=== PATIENT | female | born 1935 | race Caucasian/White ===

== ENCOUNTER 2024-02-20 17:10 | Inpatient (IN) | payer MEDICARE, BC, SELFPAY ==
[2024-02-20] VITALS (8 sets, daily range): BP systolic 140–174; BP diastolic 65–95; BMI 31.5; BMI 32.8
[2024-02-20 13:03] LABS: % Basophils 0.3 % (0-2); % Eosinophils 2.2 % (0-6); % Immature Granulocytes 0.7 % (0-0.5); % Lymphocytes 29.8 % (20.5-51.1); % Monocytes 9.4 % (1.7-9.3); % Neutrophils 57.6 % (42.2-75.2); Absolute Eosinophils 0.1 10^3/uL (0-0.7); Absolute Lymphocytes 1.8 10^3/uL (1.2-3.4); Absolute Monocytes 0.6 10^3/uL (0.1-0.6); Absolute Neutrophils 3.4 10^3/uL (1.4-6.5); Hematocrit 24.8 % (37.0-47.0); Mean Corpuscular Hgb 15.5 pg (27.0-31.0); Mean Corpuscular Volume 62.2 fL (81.0-99.0); Nucleated Red Blood Cells % 0 %; Red Blood Cell Count 3.99 10^6/uL (4.20-5.40); Red Cell Dist. Width 21.1 % (11.5-14.5); White Blood Cell Count 5.9 10^3/uL (4.8-10.8)
[2024-02-20 13:04] LABS: Hemoglobin 6.2 g/dL (12.0-16.0)
[2024-02-20 13:17] LABS: ALT (SGPT) 12 U/L (0-35); AST (SGOT) 20 U/L (14-36); Albumin 4.1 g/dl (3.5-5.0); Alkaline Phosphatase 58 U/L (38-126); Blood Urea Nitrogen 27 mg/dl (7-17); Calcium 8.9 mg/dl (8.4-10.2); Carbon Dioxide 24 mmol/L (22-30); Chloride 103 mmol/L (98-107); Estimated Creatinine Clearance 55 ml/min; Glucose 93 mg/dl (70-99); Potassium 4.7 mmol/L (3.5-5.1); Sodium 137 mmol/L (135-145); Total Bilirubin 0.3 mg/dl (0.2-1.3); Total Protein 6.6 g/dl (6.3-8.2); eGFR > 60.00
--- NOTE | 2024-02-20 15:40 | ED.GENMED ---
History of Present Illness
General
Chief Complaint: Abnormal Lab Value
Source: patient
Exam Limitations: none
Time Seen by Provider: 02/20/24 15:05
Nursing documentation reviewed up to this point in time: agreed with
History of Present Illness
History of Present Illness:
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
Cardiac stents remotely
Presents for gradual onset of fatigue over the last week or so. Patient says she cannot be sure how long she has had the symptoms but she has felt wiped out. With any movement or little bit of activity she feels short of breath. Her hemoglobin
was checked by the facility and it was 6.1 yesterday. She was told to come to the hospital. Patient has occasionally had upper abdominal discomfort but has never had an ulcer or an endoscopy.
Patient has never had a transfusion before. She has had some darker stool, she has been dealing with constipation and she thinks that she was given something that made her stool darker. She has not had any vomiting blood or bleeding from anywhere
else. Patient has no chest pain or syncope
Past History
Past History
ED Past Medical History: GERD, HTN, Hypercholesterolemia, Psychiatric (Anxiety/depression) and Other (Patient with history of DVT, PE 07/2020, no longer anticoagulated.)
ED Past Surgical History: Cholecystectomy
Social History
Tobacco: Non-smoker
Alcohol: None
Personal: Single
Living: fdc
Review of Systems
Review of Systems
Allergies reviewed?: Yes
All Other Systems: Not applicable
Phy Exam
Physical Exam
Physical Exam:
GENERAL: Alert , in no apparent distress, fatigued
EYE: pupils equal and reactive, pale
NECK: Supple
ENT: o/p clr, mmm.
CARDIAC: Regular rate and rhythm ., No murmur
LUNGS: Faint wheezing possibly heard, clear breath sounds bilaterally, no acute respiratory distress, no wheezes/rales/rhonchi
ABDOMEN: Soft, without focal tenderness, no r/g, no cvat, normal bowel sounds
NEUROLOGICAL: Alert and oriented, no focal neuro deficits
SKIN: Warm and dry, skin intact. pale
MUSCULOSKELETAL: mild edema, well perfused. neg sergio's sign
PSYCH: Normal and appropriate interaction.
Course
Orders/Labs/Results
Orders:
Orders
02/20/24 12:42
Electrocardiogram (*1) Urgent
Reason for Study: Fatigue / Weakness
EKG- Treatment ONCE
02/20/24 12:46
Electrocardiogram (*1) Urgent
Reason for Study: Fatigue / Weakness
EKG- Treatment ONCE
02/20/24 12:49
Complete Blood Count/With Diff Urgent
Comprehensive Metabolic Panel Urgent
02/20/24 15:09
Type And Crossmatch [Type+Screen] Urgent
02/20/24 15:27
Blood Bank Products [* Blood Bank Products] Urgent
Blood Bank Products: *Packed RBC Leuko(PRBC's)
Quantity: 2
Transfuse Today: Yes
Reason: Anemia
NT-proBNP Urgent
Pantoprazole [Protonix IV] 40 mg IV NOW STA
CR Chest - 2 Views Urgent
Comment:
Reason For Exam: sob
Abnormal Lab Results
02/20/24
12:49
RBC 3.99 L 10^6/uL
(4.20-5.40)
Hgb 6.2 L* g/dL
(12.0-16.0)
Hct 24.8 L %
(37.0-47.0)
MCV 62.2 L fL
(81.0-99.0)
MCH 15.5 L pg
(27.0-31.0)
MCHC 25.0 L g/dL
(33.0-37.0)
RDW 21.1 H %
(11.5-14.5)
Immature Gran % 0.7 H %
(0-0.5)
Monocytes % 9.4 H %
(1.7-9.3)
BUN 27 H mg/dl
(7-17)
02/20/24 12:49
02/20/24 12:49
Vital Signs
Initial and Last Documented VS:
Initial Vital Signs
Temp Pulse Resp BP Pulse Ox
36.6 C 90 18 152/73 96
02/20/24 12:37 02/20/24 12:37 02/20/24 12:37 02/20/24 12:37 02/20/24 12:37
Last Documented Vital Signs
Temp Pulse Resp BP Pulse Ox
37.2 C 91 18 165/71 92
02/20/24 13:39 02/20/24 14:29 02/20/24 14:29 02/20/24 14:29 02/20/24 14:29
MDM/Problems Addressed
Differential Diagnosis Includes:
symptomatic anemia GI bleed
MDM/Problems Addressed:
88 y/o F with no AC
here with symptjmatoic anemia
knwon hg of 6.1
HEME POS light brown stool todya
very pale
weak and fatigued
faint wheeze on exam
normal bp
will transufse, consent on the chart
protonix iv
admit
*Critical Care Note
Total Time (30-74mins, 75-104mins- exclusive of procedures): Not Applicable
ED Attending Note
-
Portions of this chart may have been created with voice recognition software.� Occasional wrong word or��sound alike� substitutions may have occurred due to the inherent limitations of voice recognition software.
Discharge Plan
Departure
Patient Disposition: Admit
Date of Disposition: 02/20/24
Time of Disposition: 15:37
Admit to: Telemetry
Presentation/result/management discussed w/ accepting MD/DO: Hospitalist
Condition: Fair
Covid-19: Not Applicable
Discharge Problem:
Symptomatic anemia, GI bleed
Prescriptions:
No Action
sennosides [senna] 8.6 mg Tablet
8.6 mg PO HS
acetaminophen 650 mg Suppository
650 mg IA Q6HPRN PRN (Reason: mild pain/fever)
polyethylene glycol 3350 [Miralax] 17 gram Powder In Packet
17 g PO DAILYPRN PRN (Reason: constipation)
prochlorperazine maleate 10 mg Tablet
10 mg PO Q6HPRN PRN (Reason: nasuea)
lorazepam 0.5 mg Tablet
0.5 mg PO Q8HPRN PRN (Reason: anxiety)
phenazopyridine [Pyridium] 100 mg Tablet
100 mg PO Q8HPRN PRN (Reason: burning with urination)
bisacodyl [Dulcolax (bisacodyl)] 10 mg Suppository
10 mg IA [id number] PRN (Reason: if no bm by 3rd day)
fluoxetine 20 mg Tablet
30 mg PO DAILY
bismuth subsalicylate [Pepto-Bismol] 262 mg/15 mL Suspension
524 mg PO Q6HPRN PRN (Reason: gi upset)
hyoscyamine sulfate [Levsin/SL] 0.125 mg Tablet, Sublingual
0.125 mg PO Q4HPRN PRN (Reason: secretions)
fentanyl 75 mcg/hr Patch 72 Hour
1 patch TRANSDERMAL Q72H
duloxetine [Cymbalta] 20 mg Capsule,Delayed Release(Dr/Ec)
40 mg PO QPM
morphine concentrate 20 mg/mL Syringe
15 mg PO Q1HPRN PRN (Reason: severe pain)
acetaminophen 325 mg Tablet
650 mg PO Q6HPRN PRN (Reason: mild pain/fever)
gabapentin 400 mg Capsule
400 mg PO TID
lidocaine 4 % Cream
1 applic TOPICAL TIDPRN PRN (Reason: feet and legs)
methenamine hippurate [Hiprex] 1 gram Tablet
1 g PO BID
lorazepam 0.5 mg Tablet
0.5 mg PO Q8H
Deep Sea Nasal 0.65 % Aerosol,Filley
1 spray INTRANASAL [id number] PRN (Reason: nasal congestion)
Eucerin Daily Replenishing Lotion
1 applic TOPICAL BID
morphine concentrate 20 mg/mL Syringe
15 mg SUBLINGUAL DAILY
Cough Drops 5.4 mg Lozenge
5.4 mg MUCOUS MEMBRANE Q2HPRN PRN (Reason: cough)
Interventions
Interventions:
*Risk Screen - Suicide Last Done: 02/20/24 12:37
*Neglect/Abuse Screening Last Done: 02/20/24 12:37
*ED COVID-19 Vaccine History Last Done: 02/20/24 12:37
Discharge Date and Time
Print Language: AUSTRALIAN
--- NOTE | 2024-02-20 15:57 | HPS.HSE ---
Family Physician
-
Family Physician: Deon Hernandez
Chief Complaint
-
Fatigue, reported dark brown stool, hemoglobin 6.1
History of Present Illness
88-year-old female from [facility] complaining of fatigue over the past week, mid abdominal pain, constipation approximately 4-5 days ago and indigestion. Her daughter Dory states her mother has chronic issues with severe constipation then
diarrhea with indigestion. She states her mother had constipation greater than 4 to 5 days ago she was given prune juice and MiraLAX on 1227 and 122. The patient states she had a bowel movement yesterday 02/19/2024 that was dark brown in color.
Her daughter states after she has a bowel movement she then starts having diarrhea with indigestion so they gave her Pepto-Bismol of which she has had in the last few days. Her hemoglobin is 6.1 from [facility] labs today her daughter states
January 2023 her hemoglobin is around 10. The patient denies headache, sore throat, fever, chills, chest pain, palpitations, cough, shortness of breath, current urinary symptoms. She has past medical history of DVT right leg/PE 2020 was on
Eliquis but not currently, HTN, HLD, arterial sclerosis, GERD daily reported, chronic constipation/diarrhea, iron deficiency anemia, DM2 diet-controlled, anxiety/depression, chronic wheelchair-bound, chronic left and right foot drop, neuropathy
bilateral feet, chronic lower back pain secondary to spinal stenosis opiate dependent, history of cognitive impairment not listed but son states has
Medical History
Past Medical History
Past Medical History: Reports Other
Additional Past Medical History:
DVT right leg/PE 2019 was on Eliquis but not now
HTN
HLD
Arterialsclerosis
GERD daily reported
Chronic constipation/diarrhea
Anemia
DM 2
Anxiety/depression
Spinal stenosis
Neuropathy bilateral feet
Chronic left and right foot drops
Chronic wheelchair-bound
Past Surgical History: Reports Other
Additional Past Surgical History:
Cholecystectomy
Social History
Tobacco: Non-smoker
Alcohol: Occasional
Drug: None
Personal: Single
Living: Assisted Living ([facility])
Employment: Retired
Family History
Family History: Not pertinent
Allergies / Home Medications
Allergies reflects when Allergies were last updated in [employer].
Home Medications with original date entered in [facility]
Allergy/Medication List:
Allergies
Allergy/AdvReac Type Severity Reaction Status Date / Time
No Known Allergies Allergy Unverified 02/07/23 12:54
Home Medications
acetaminophen 650 mg rectal suppository 650 mg SC Q6HPRN PRN mild pain/fever 02/07/23
bisacodyl 10 mg rectal suppository (Dulcolax (bisacodyl)) 10 mg SC [id number] PRN if no bm by 3rd day 02/07/23
bismuth subsalicylate 262 mg/15 mL oral suspension (Pepto-Bismol) 524 mg PO Q6HPRN PRN gi upset 02/07/23
duloxetine 20 mg capsule,delayed release (Cymbalta) 40 mg PO QPM 02/07/23
fentanyl 75 mcg/hr transdermal patch 1 patch transdermal Q72H 02/07/23
fluoxetine 20 mg tablet 30 mg PO DAILY 02/07/23
hyoscyamine sulfate 0.125 mg sublingual tablet (Levsin/SL) 0.125 mg PO Q4HPRN PRN secretions 02/07/23
lorazepam 0.5 mg tablet 0.5 mg PO Q8HPRN PRN anxiety 02/07/23
morphine concentrate 20 mg/mL oral syringe (FOR ORAL USE ONLY) 15 mg PO Q1HPRN PRN severe pain 02/07/23
phenazopyridine 100 mg tablet (Pyridium) 100 mg PO Q8HPRN PRN burning with urination 02/07/23
polyethylene glycol 3350 17 gram oral powder packet (Miralax) 17 g PO DAILYPRN PRN constipation 02/07/23
prochlorperazine maleate 10 mg tablet 10 mg PO Q6HPRN PRN nasuea 02/07/23
sennosides 8.6 mg tablet (senna) 8.6 mg PO HS 02/07/23
acetaminophen 325 mg tablet 650 mg PO Q6HPRN PRN mild pain/fever 02/20/24
gabapentin 400 mg capsule 400 mg PO TID 02/20/24
lidocaine 4 % topical cream 1 applic topical TIDPRN PRN feet and legs 02/20/24
lorazepam 0.5 mg tablet 0.5 mg PO Q8H 02/20/24
menthol 5.4 mg lozenges (Cough Drops) 5.4 mg mucous membrane Q2HPRN PRN cough 02/20/24
methenamine hippurate 1 gram tablet 1 g PO BID 02/20/24
morphine concentrate 20 mg/mL oral syringe (FOR ORAL USE ONLY) 15 mg sublingual DAILY 02/20/24
sodium chloride 0.65 % nasal spray aerosol (Deep Sea Nasal) 1 spray intranasal [id number] PRN nasal congestion 02/20/24
vit B-ehijswkh-reryeycdcma lotion 1 applic topical BID feet 02/20/24
Review of Systems
-
History Source: Patient and Family (Son Dante in room and daughter Dory on the phone)
A 12 point ROS was completed and negative except as noted: Yes
Constitutional: Reports Fatigue; Denies Fever
EENT: Denies Sore Throat or Runny Nose
Respiratory: Denies Cough or Trouble Breathing
Abdomen/GI: Reports Abdominal Pain (Entire abdomen including indigestion) and Constipated (4 to 5 days ago last bowel movement yesterday 02/19/2024 dark brown after Pepto); Denies Nausea, Vomiting or Diarrhea
: Denies Dysuria, Frequency, Flank Pain, Incontinence, Difficulty Voiding or Urgency
Musculoskeletal: Reports Other (Chronic bilateral lower leg foot drops left and right); Denies Joint Pain or Edema
Skin: Denies Itching or Rash
Neurological: Denies Dizzy, Headache or Weakness
Endocrine: Reports No Symptoms
Hematologic/Lymphatic: Reports No Symptoms
Psych: Reports Calm
Physical Exam
Vital Signs
Vital Signs
Temp Pulse Resp BP Pulse Ox
98.9 F 91 18 165/71 92
02/20/24 13:39 02/20/24 14:29 02/20/24 14:29 02/20/24 14:29 02/20/24 14:29
Physical Exam
General: Comfortable, Conversant and Other (Reported fatigue and constipation unsure how long patient with history of cognitive impairment not listed but son states); No Fever or Chills
HEENT: NormoCephalic, Anicteric, Moist mucous membranes, PERRLA and [place] Conjunctivae
Respiratory: Clear; No Wheezes, Rales or Rhonchi
Cardiac: S1/S2 and Regular Rhythm; No Murmur, Rub, Gallop or Peripheral Edema
Breast: Deferred by me
GI: Soft, Non Distended, Normal Bowel Sounds and Tender (Epigastric area)
Rectal: Hem Positive (Light brown per ER record heme positive)
Genito-urinary: Deferred by me
Musculoskeletal: No Clubbing, No Cyanosis, No Edema and Other (Bilateral left and right foot drops chronic)
Skin: Warm and Dry; No Rash, Jaundice or Ulcers
Neuro: Awake, Alert, Oriented (To name, place, son but not history inconsistent with history, review of systems), Cranial Nerves Intact, No Sensory Deficits and Other (Chronic bilateral foot drop); No Slurred Speech, Facial Droop or Tremors
Psych: Calm
Laboratory Results
-
02/20/24 12:49
02/20/24 12:49
Laboratory Results
Total Bilirubin 0.3 mg/dl (0.2-1.3) 02/20/24 12:49
AST 20 U/L (14-36) 02/20/24 12:49
ALT 12 U/L (0-35) 02/20/24 12:49
Alkaline Phosphatase 58 U/L (38-126) 02/20/24 12:49
Impression/Plan
-
Impression/plan:
Admit to telemetry
#Symptomatic anemia/microcytic concern possible GI bleed 2/2 PUD
#Hx anemia-microcytic
Hgb 6.2, MCV 62.2
Blood consent obtained, transfuse 2 units PRBC
-Consult GI
-Hold OTC Pepto-Bismol
-IV Protonix 40 mg twice daily
-Clear liquid diet
-N.p.o. after midnight
-Consult GI
-Check iron panel, B12, folate
#Hx chronic constipation/diarrhea
#Patient on chronic oral opiates causing chronic constipation
Recent constipation 4 to 5 days ago treated with MiraLAX prune juice senna 1227, 1229
Last bowel movement yesterday 02/19/2024 dark brown after Pepto-Bismol
-Advised patient's daughter Dory patient should have regimen of MiraLAX daily in addition to her senna to prevent constipation
#history of cognitive impairment not listed but son states
#DVT right leg/PE 2019-was treated with Eliquis at that time then stopped
#HTN�benign
165/71
IV hydralazine 5 mg every 6 hours SBP> 165
#Spinal stenosis with chronic lower back pain
#Chronic neuropathy bilateral legs
#Chronic left and right dropfoot
#Chronic wheelchair-bound
-Continue Tylenol 650 mg every 6 hours as needed mild pain/fever
-Continue gabapentin, morphine 15 mg sublingual daily with morphine 15 mg p.o. every hour H as needed severe pain
#HLD
-No meds listed
#GERD
-Will be placed on IV Protonix twice daily
-Consider PPI or Pepcid on discharge due to reported chronic acid reflux daily
#DM 2�diet controlled
Accu-Cheks with SSI low, check HgbA1c
#Anxiety/depression
-Continue Cymbalta 40 mg every afternoon, fluoxetine 30 mg daily
-cont lorazepam 0.5 mg p.o. every 8 hours and 0.5 mg p.o. every 8 hours as needed
#Chronic UTIs
IV patient on chronic Hiprex 1 g p.o. twice daily
DVT prophylaxis
SCDs given hemoglobin 6.1 and concern for GI bleed
DNR per patient with son Dante at bedside
--- NOTE | 2024-02-20 16:37 | W.PN.UPDATE ---
Update Note
Progress Note Update
This is an addendum to the H&P written by Radha Barton on 02/20/2024.� Patient seen and examined independently with PARAPROFESSIONAL AIDE TEACHER.
88-year-old female past medical history of CAD with history of stents, hypertension, GERD, hypercholesteremia, anxiety/depression, DVT/PE in 2020 no longer on anticoagulation, chronic pain, presenting with symptomatic anemia.� Hemoglobin 6.1 at the
facility.� Occasionally with upper abdominal discomfort.� Also with dark stool and constipation.
Stools are heme positive and light although dark a [facility].
Labs unremarkable apart from hemoglobin of 6.2.
Concern for upper GI bleed possibly related to peptic ulcer disease.� 2 units of blood.� Check iron studies, B12 and folate.� Clear liquid diet, n.p.o. past midnight.� IV Protonix 40 twice daily.� GI consulted.
[2024-02-20] MEDS: PROTONIX IV 40 MG IV (16:49)
[2024-02-20 17:36] LABS: NT-proBNP 134 pg/ml
--- NOTE | 2024-02-20 18:14 | PTCARENOTE ---
Addendum entered by Nicolette Bowman RN 02/20/24 20:05:
Patient with HGB 6.2. Order to transfuse two units of packed RBCs. Patient and daughter provided education. Both verbalize understanding. Also educated on NPO status for after midnight with verbalization of understanding.
Original Note:
Patient admitted from ER into room 403-01. Vital signs stable. Oriented to room, use of call corral, and TV and bed controls. Patient verbalizes understanding of teaching. Patient on clear liquids at this time and is aware of diet restrictions. Tele
placed on patient as ordered.
[2024-02-20] MEDS: CYMBALTA DELAYED RELEASE 40 MG PO (20:42)
[2024-02-20] MEDS: HIPREX 1 GRAM PO (20:44)
[2024-02-20] MEDS: COMPAZINE 5 MG IV (21:33)
[2024-02-20] MEDS: NEURONTIN 400 MG PO (21:34)
[2024-02-20] MEDS: APRESOLINE 5 MG IV (21:42)
[2024-02-21] VITALS (12 sets, daily range): BP systolic 141–181; BP diastolic 63–98; PULSE 93–97; O2SAT 97
[2024-02-21] MEDS: ATIVAN 0.5 MG PO ×4 (00:52→23:32)
[2024-02-21] MEDS: APRESOLINE 5 MG IV ×2 (04:30→06:44)
[2024-02-21 07:11] LABS: % Basophils 0.2 % (0-2); % Eosinophils 0.8 % (0-6); % Monocytes 9.2 % (1.7-9.3); % Neutrophils 55.8 % (42.2-75.2); Absolute Eosinophils 0.1 10^3/uL (0-0.7); Absolute Immature Granulocytes 0.1 10^3/uL (0-0.05); Absolute Monocytes 0.6 10^3/uL (0.1-0.6); Absolute Neutrophils 3.5 10^3/uL (1.4-6.5); Hematocrit 31.7 % (37.0-47.0); Mean Corp Hgb Conc. 28.4 g/dL (33.0-37.0); Mean Corpuscular Hgb 19.1 pg (27.0-31.0); Mean Corpuscular Volume 67.2 fL (81.0-99.0); Mean Platelet Volume 9.2 fL (7.4-10.4); Nucleated Red Blood Cells % 0 %; Platelet Count 290 10^3/uL (130-400); Red Blood Cell Count 4.72 10^6/uL (4.20-5.40); Red Cell Dist. Width 25.3 % (11.5-14.5); White Blood Cell Count 6.2 10^3/uL (4.8-10.8)
[2024-02-21 07:22] LABS: Blood Urea Nitrogen 20 mg/dl (7-17); Carbon Dioxide 25 mmol/L (22-30); Chloride 105 mmol/L (98-107); Estimated Creatinine Clearance 56 ml/min; Glucose 94 mg/dl (70-99); Iron 39 ug/dl (37-170); Potassium 4.8 mmol/L (3.5-5.1); Sodium 138 mmol/L (135-145); eGFR > 60.00
[2024-02-21 07:31] LABS: Percent Saturation 11 % (20-50); Total Iron Binding Capacity 354 ug/dl (265-497)
[2024-02-21 07:45] LABS: Anisocytosis 2+; Hypochromasia 2+; Normal RBC Morphology No; Ovalocytes 2+; Polychromasia 1+; Target Cells FEW
--- NOTE | 2024-02-21 07:49 | CON.GI ---
Consultation
-
Date/Time Consultation Requested: 02/20/2024
Date/Time Consultation Performed: 02/21/2024
Requesting Provider: Hospitalist
Performing Provider: Dr. Ramsey
Reason for Consultation: Symptomatic anemia
Medical History
Chief Complaint / HPI
Chief Complaint: Sent from assisted living with dark stools upper abdominal pain and low hem
History of Present Illness:
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
according to her daughter. She has no significant records in [facility] to compare. According to the notes in family she was complaining of fatigue over the past week with mid abdominal pain and constipation. She does have chronic severe
constipation alternates with diarrhea and indigestion. She has been given some prune juice and MiraLAX to help with the constipation and had a bowel movement on 02/19/2024 that was dark brown in color. After having multiple bowel movements they
then gave her Pepto-Bismol. Her hemoglobin was 6.1.
Patient is not on a PPI. She denies any reflux heartburn dysphagia weight loss anorexia. States her bowel movements have been erratic over the last year since being in [facility].
At the assisted living she is on duloxetine, fentanyl patch, hyoscyamine as needed oral morphine gets as needed laxatives and softeners.
In the emergency room her stools were light brown and heme positive hemoglobin here in the emergency room was 6.2, MCV 62, platelets 290 with a BUN of 27 and a creatinine of 0.7. Normal LFTs. Normal bilirubin. White count 5.9, ferritin is pending
but looks like it was taken this morning and she has had blood since then so it will not be valid but her percent saturation was low at 11.
Chest x-ray shows a moderate size hiatal hernia
She did receive 2 units of packed red blood cells and her hemoglobin responded nicely with a repeat of 9.
Past Medical History
Past Medical History: Other (Hypertension, prior DVT PE in 1999 previously on Eliquis, iron deficiency anemia, chronic opiate dependency from spinal stenosis and back pain, chronic constipation, wheelchair-bound, bilateral neuropathy in feet,
cognitive impairment living in custodial)
Past Surgical History: Cholecystectomy
Social History
Tobacco: Non-Smoker
Alcohol: Occasional
Drug: None
Living: Assisted Living
Employment: Retired
Family History
Family History: Reviewed & Not Pertinent
Allergies / Home Medications
Allergy/AdvReac Type Severity Reaction Status Date / Time
No Known Allergies Allergy Unverified 02/07/23 12:54
�Medication �Instructions �Recorded
acetaminophen 650 mg rectal 650 mg TX Q6HPRN PRN mild 02/07/23
suppository pain/fever
bisacodyl 10 mg rectal suppository 10 mg TX [id number] PRN if no bm by 02/07/23
(Dulcolax (bisacodyl)) 3rd day
bismuth subsalicylate 262 mg/15 mL 524 mg PO Q6HPRN PRN gi upset 02/07/23
oral suspension (Pepto-Bismol)
duloxetine 20 mg capsule,delayed 40 mg PO QPM 02/07/23
release (Cymbalta)
fentanyl 75 mcg/hr transdermal 1 patch transdermal Q72H 02/07/23
patch
fluoxetine 20 mg tablet 30 mg PO DAILY 02/07/23
hyoscyamine sulfate 0.125 mg 0.125 mg PO Q4HPRN PRN secretions 02/07/23
sublingual tablet (Levsin/SL)
lorazepam 0.5 mg tablet 0.5 mg PO Q8HPRN PRN anxiety 02/07/23
morphine concentrate 20 mg/mL oral 15 mg PO Q1HPRN PRN severe pain 02/07/23
syringe (FOR ORAL USE ONLY)
phenazopyridine 100 mg tablet 100 mg PO Q8HPRN PRN burning with 02/07/23
(Pyridium) urination
polyethylene glycol 3350 17 gram 17 g PO DAILYPRN PRN constipation 02/07/23
oral powder packet (Miralax)
prochlorperazine maleate 10 mg 10 mg PO Q6HPRN PRN nasuea 02/07/23
tablet
sennosides 8.6 mg tablet (senna) 8.6 mg PO HS 02/07/23
acetaminophen 325 mg tablet 650 mg PO Q6HPRN PRN mild 02/20/24
pain/fever
gabapentin 400 mg capsule 400 mg PO TID 02/20/24
lidocaine 4 % topical cream 1 applic topical TIDPRN PRN feet 02/20/24
and legs
lorazepam 0.5 mg tablet 0.5 mg PO Q8H 02/20/24
menthol 5.4 mg lozenges (Cough 5.4 mg mucous membrane Q2HPRN PRN 02/20/24
Drops) cough
methenamine hippurate 1 gram tablet 1 g PO BID 02/20/24
morphine concentrate 20 mg/mL oral 15 mg sublingual DAILY 02/20/24
syringe (FOR ORAL USE ONLY)
sodium chloride 0.65 % nasal spray 1 spray intranasal [id number] PRN 02/20/24
aerosol (Deep Sea Nasal) nasal congestion
vit W-ejgwvtoy-asefpvragbt lotion 1 applic topical BID feet 02/20/24
Review of Systems
-
History Source: Patient and Family
Constitutional: Reports Weight Gain
Respiratory: Reports No Symptoms
Cardiac: Reports No Symptoms
Abdomen/GI: Reports Abdominal Pain (Minimal epigastric discomfort this morning), Nausea and Vomiting
Neurological: Reports Numbness (Bilateral lower extremity neuropathy from spinal stenosis)
Hematologic/Lymphatic: Reports No Symptoms
Vital Signs
Temp Pulse Resp BP Pulse Ox
98.3 F 93 18 184/90 96
02/21/24 04:27 02/21/24 06:44 02/21/24 04:27 02/21/24 06:44 02/21/24 04:27
Physical Exam
Exam
General: No Apparent Distress (Patient is currently nauseated)
HEENT: Anicteric
GI: Soft and Non Tender (Minimal epigastric tenderness, soft)
Skin: Warm
Neuro: Awake and Alert
Psych: Calm
Results
WBC 6.2 10^3/uL (4.8-10.8) 02/21/24 06:10
Hgb 9.0 g/dL (12.0-16.0) L D 02/21/24 06:10
Hct 31.7 % (37.0-47.0) L 02/21/24 06:10
MCV 67.2 fL (81.0-99.0) L 02/21/24 06:10
Plt Count 290 10^3/uL (130-400) 02/21/24 06:10
Absolute Neuts (auto) 3.5 10^3/uL (1.4-6.5) 02/21/24 06:10
Sodium 138 mmol/L (135-145) 02/21/24 06:10
Potassium 4.8 mmol/L (3.5-5.1) 02/21/24 06:10
Chloride 105 mmol/L (98-107) 02/21/24 06:10
Carbon Dioxide 25 mmol/L (22-30) 02/21/24 06:10
BUN 20 mg/dl (7-17) H 02/21/24 06:10
Creatinine 0.7 mg/dL (0.6-1.0) 02/21/24 06:10
Calcium 9.0 mg/dl (8.4-10.2) 02/21/24 06:10
Total Bilirubin 0.3 mg/dl (0.2-1.3) 12/31/24 12:49
AST 20 U/L (14-36) 02/20/24 12:49
ALT 12 U/L (0-35) 02/20/24 12:49
Alkaline Phosphatase 58 U/L (38-126) 02/20/24 12:49
In the emergency room her stools were light brown and heme positive hemoglobin here in the emergency room was 6.2, MCV 62, platelets 290 with a BUN of 27 and a creatinine of 0.7. Normal LFTs. Normal bilirubin. White count 5.9, ferritin is pending
but looks like it was taken this morning and she has had blood since then so it will not be valid but her percent saturation was low at 11.
Chest x-ray shows a moderate size hiatal hernia
She did receive 2 units of packed red blood cells and her hemoglobin responded nicely with a repeat of 9.
Prior GI Procedures: None here
EGD: Never
Colonoscopy: According to family over 10 years ago at an outside facility
Assessment / Plan
-
Lashawn is an 88-year-old female with history of chronic opiate dependency from spinal stenosis, chronic constipation, subjective iron deficiency anemia who comes in with microcytic anemia of a hemoglobin of 6.2 requiring 2 units of blood with
good response to hemoglobin of 9 with brown heme positive stools and otherwise hemodynamically stable
#1 Iron deficiency anemia
--- Patient received 2 units of blood for hemodynamically stable iron deficiency anemia and responded well going from 6.2---> 9 (normal response would be 8.2)
--- Start IV iron, patient appropriately started on twice daily PPI, not on PPI at home
--- Patient has not on any NSAIDs or blood thinners
-- Her stools are brown and heme positive
--- Etiology of her iron deficiency anemia could be her moderate-sized hiatal hernia as seen on chest x-ray especially in the setting of no PPI. This could be Harish ulcerations
Other etiologies for iron deficiency anemia in an 88-year-old could be malignancy, vascular oozing from angioectasias, advanced polyps.
--- Will proceed to EGD tomorrow
-- Continue clear liquid diet with 1 nutritional supplement daily in the setting of her nausea. If the nausea becomes well-controlled okay for low residue diet with n.p.o. after midnight
#2 Chronic opiate induced constipation
-- Avoid cycling [id number] from constipation to diarrhea. Patient is on opiates often needs stimulants and MiraLAX may not be enough
-- Will give her Colace twice daily and senna at night. If she has persistent loose stool can back off the senna
-- Giving her a opiate antagonist may also be necessary but given its cost we will start with more conservative therapy
Data Reviewed
-
Radiology: Report Reviewed by me
-
-
Thank you for consultation and allowing me to participate in the patient's care. Please call the clinical rehabilitation coordinator GI physician during the after hours with any questions or concerns.
[2024-02-21 08:04] LABS: Ferritin 4.4 ng/ml (11.1-264.0)
[2024-02-21 08:35] LABS: Folate 17.1 ng/ml (2.76-20); Vitamin B12 239 pg/ml (239-931)
[2024-02-21] MEDS: COMPAZINE 5 MG IV (08:40)
[2024-02-21] MEDS: HIPREX 1 GRAM PO ×2 (08:41→20:56)
[2024-02-21] MEDS: PROZAC 30 MG PO (08:41)
[2024-02-21] MEDS: NEURONTIN 400 MG PO ×3 (08:41→20:55)
[2024-02-21] MEDS: ROXANOL ORAL CONCENTRATE 15 MG SL (08:42)
[2024-02-21] MEDS: NSS (PRESERVATIVE FREE) 10 ML IV ×2 (08:42→20:55)
[2024-02-21] MEDS: PROTONIX IV 40 MG IV ×2 (08:42→20:55)
--- NOTE | 2024-02-21 12:20 | W.PN.HOSP.TC ---
Addendum entered and electronically signed by Segundo Hodges MD 02/21/24 15:58:
updated son over the phone in details
Original Note:
Today's Communication/Plan
-
IV iron/b12
EGD in am
trend h/h
start bp meds
Assessment / Plan
Assessment / Plan
General: Comfortable, obese
HEENT: NormoCephalic, Anicteric, Moist mucous membranes, PERRLA and [place] Conjunctivae
Respiratory: Clear; No Wheezes, Rales or Rhonchi
Cardiac: S1/S2 and Regular Rhythm; No Murmur, Rub, Gallop or Peripheral Edema
GI: Soft, Non Distended, Normal Bowel Sounds and Tender (Epigastric area)
Rectal: Hem Positive (Light brown per ER record heme positive)
Genito-urinary: Deferred by me
Musculoskeletal: No Clubbing, No Cyanosis, No Edema and Other (Bilateral left and right foot drops chronic)
Skin: Warm and Dry; No Rash, Jaundice or Ulcers
Neuro: Awake, Alert, Oriented Cranial Nerves Intact, No Sensory Deficits and Other (Chronic bilateral foot drop); No Slurred Speech, Facial Droop or Tremors
Psych: Calm
#Symptomatic anemia/microcytic concern possible GI bleed 2/2 PUD vs. AVMs vs. malignancy
#Hx anemia-microcytic
Hgb 6.2, MCV 62.2
s/p 2 units PRBC. Hgb uptrended to 9
-Consult GI
-Hold OTC Pepto-Bismol
-IV Protonix 40 mg twice daily
-Clear liquid diet
-N.p.o. after midnight for EGD in am
-Consult GI
-started on IV iron and po b12
#Hx chronic constipation/diarrhea
#Patient on chronic oral opiates causing chronic constipation
Recent constipation 4 to 5 days ago treated with MiraLAX prune juice senna 1227, 1229
Last bowel movement yesterday 02/19/2024 dark brown after Pepto-Bismol
-Advised patient's daughter Dory patient should have regimen of MiraLAX daily in addition to her senna to prevent constipation
#history of cognitive impairment not listed but son states
#DVT right leg/PE 2019-was treated with Eliquis at that time then stopped
#HTN�benign
165/71
IV hydralazine 5 mg and started on procardia 30mg daily. Can uptitrate as needed
#Spinal stenosis with chronic lower back pain
#Chronic neuropathy bilateral legs
#Chronic left and right dropfoot
#Chronic wheelchair-bound
-Continue Tylenol 650 mg every 6 hours as needed mild pain/fever
-Continue gabapentin, morphine 15 mg sublingual daily with morphine 15 mg p.o. every hour H as needed severe pain
#HLD
-No meds listed
#GERD
-Will be placed on IV Protonix twice daily
-Consider PPI or Pepcid on discharge due to reported chronic acid reflux daily
#DM 2�diet controlled
Accu-Cheks with SSI low, check HgbA1c
#Anxiety/depression
-Continue Cymbalta 40 mg every afternoon, fluoxetine 30 mg daily
-cont lorazepam 0.5 mg p.o. every 8 hours and 0.5 mg p.o. every 8 hours as needed
#Chronic UTIs
IV patient on chronic Hiprex 1 g p.o. twice daily
DVT prophylaxis
SCDs given hemoglobin 6.1 and concern for GI bleed
DNR per patient with son Dante at bedside
Anticipated Discharge: > 48 hours
Subjective/Interval History
-
Date of Service: February 21, 2024
BP was elevated this morning
Took pain meds and falling asleep now
denies abd pain
Objective Data
-
Labs:
Laboratory Results
02/21/24
06:10
WBC 6.2
Hgb 9.0 L D
Hct 31.7 L
Plt Count 290
Sodium 138
Potassium 4.8
Chloride 105
Carbon Dioxide 25
BUN 20 H
Creatinine 0.7
Glucose 94
Calcium 9.0
Vital Signs:
Vital Signs
Temp Pulse Resp BP Pulse Ox
97.8 F 98 16 170/93 97
02/21/24 07:15 02/21/24 07:15 02/21/24 07:15 02/21/24 07:15 02/21/24 07:15
I&O
02/20/24 02/21/24 02/22/24
06:59 06:59 06:59
Intake Total 500 / 500
Output Total 1100 / 1100
Balance -600 / -600
Data Reviewed
-
Total Time Spent with Patient (in minutes): 55
[2024-02-21] MEDS: PROCARDIA XL (EXTENDED RELEASE) 30 MG PO (12:36)
[2024-02-21] MEDS: VITAMIN B-12 1000 MCG PO (12:36)
[2024-02-21] MEDS: FERRLECIT 110 MG IV (13:49)
[2024-02-21] MEDS: TRANDATE 10 MG IV (16:29)
[2024-02-21] MEDS: CYMBALTA DELAYED RELEASE 40 MG PO (17:23)
[2024-02-21 18:54] LABS: Hematocrit 31.6 % (37.0-47.0); Hemoglobin 9.1 g/dL (12.0-16.0)
[2024-02-21 21:48] LABS: COVID-19 Antigen Negative (Negative)
[2024-02-22] VITALS (9 sets, daily range): BP systolic 127–169; BP diastolic 51–76; BMI 33.2
[2024-02-22 07:58] LABS: % Basophils 0.2 % (0-2); % Eosinophils 0.5 % (0-6); % Immature Granulocytes 0.9 % (0-0.5); % Lymphocytes 16.8 % (20.5-51.1); % Monocytes 8.1 % (1.7-9.3); % Neutrophils 73.5 % (42.2-75.2); Absolute Eosinophils 0.1 10^3/uL (0-0.7); Absolute Immature Granulocytes 0.1 10^3/uL (0-0.05); Absolute Lymphocytes 1.7 10^3/uL (1.2-3.4); Absolute Monocytes 0.8 10^3/uL (0.1-0.6); Absolute Neutrophils 7.5 10^3/uL (1.4-6.5); Hematocrit 31.7 % (37.0-47.0); Hemoglobin 9.1 g/dL (12.0-16.0); Mean Corp Hgb Conc. 28.7 g/dL (33.0-37.0); Mean Corpuscular Hgb 19.1 pg (27.0-31.0); Mean Corpuscular Volume 66.5 fL (81.0-99.0); Nucleated Red Blood Cells % 0.2 %; Platelet Count 293 10^3/uL (130-400); Red Blood Cell Count 4.77 10^6/uL (4.20-5.40); Red Cell Dist. Width 25.8 % (11.5-14.5); White Blood Cell Count 10.2 10^3/uL (4.8-10.8)
[2024-02-22 08:24] LABS: Blood Urea Nitrogen 14 mg/dl (7-17); Carbon Dioxide 23 mmol/L (22-30); Chloride 103 mmol/L (98-107); Estimated Creatinine Clearance 56 ml/min; Glucose 109 mg/dl (70-99); Sodium 137 mmol/L (135-145); eGFR > 60.00
[2024-02-22] MEDS: NEURONTIN 400 MG PO ×3 (08:39→22:13)
[2024-02-22] MEDS: PROCARDIA XL (EXTENDED RELEASE) 30 MG PO (08:39)
[2024-02-22] MEDS: VITAMIN B-12 1000 MCG PO (08:39)
[2024-02-22] MEDS: DURAGESIC 75 MCG/HR PATCH 1 PATCH TRANSDERM (08:39)
[2024-02-22] MEDS: ATIVAN 0.5 MG PO ×2 (08:39→16:59)
[2024-02-22] MEDS: HIPREX 1 GRAM PO ×2 (08:39→22:13)
[2024-02-22] MEDS: PROZAC 30 MG PO (08:39)
[2024-02-22] MEDS: ROXANOL ORAL CONCENTRATE 15 MG SL (08:40)
[2024-02-22] MEDS: PROTONIX IV 40 MG IV (08:40)
[2024-02-22] MEDS: NSS (PRESERVATIVE FREE) 10 ML IV (08:41)
[2024-02-22] MEDS: CITROMA 300 ML PO (10:23)
[2024-02-22] MEDS: COMPAZINE 5 MG IV (11:02)
[2024-02-22] MEDS: CYANOCOBALAMIN 1000 MCG IM (11:07)
--- NOTE | 2024-02-22 11:36 | W.PN.HOSP.TC ---
Today's Communication/Plan
-
IV iron/b12
Colonsocopy tomm
ppi daily
monitor BP
Assessment / Plan
Assessment / Plan
General: Comfortable, obese
HEENT: NormoCephalic, Anicteric, Moist mucous membranes, PERRLA and [place] Conjunctivae
Respiratory: Clear; No Wheezes, Rales or Rhonchi
Cardiac: S1/S2 and Regular Rhythm; No Murmur, Rub, Gallop or Peripheral Edema
GI: Soft, Non Distended, Normal Bowel Sounds and Tender (Epigastric area)
Rectal: Hem Positive (Light brown per ER record heme positive)
Genito-urinary: Deferred by me
Musculoskeletal: No Clubbing, No Cyanosis, No Edema and Other (Bilateral left and right foot drops chronic)
Skin: Warm and Dry; No Rash, Jaundice or Ulcers
Neuro: Awake, Alert, Oriented Cranial Nerves Intact, No Sensory Deficits and Other (Chronic bilateral foot drop); No Slurred Speech, Facial Droop or Tremors
Psych: Calm
#Symptomatic anemia/microcytic concern possible GI bleed 2/2 PUD vs. AVMs vs. malignancy
#Hx anemia-microcytic
Hgb 6.2, MCV 62.2
s/p 2 units PRBC. Hgb at 9.1
-Consult GI
-Hold OTC Pepto-Bismol
-IV Protonix 40 mg daily
-Clear liquid diet
-s/p EGD lower third of the esophagus was moderately tortuous. Moderate inflammation With erythema and granularity in the gastric body and gastric antrum. Status post biopsy for H. pylori. Stomach otherwise was normal. Duodenum was normal.
-Clears today with plan for colonoscopy tomorrow.
-Continue with IV iron and B12 supplementation.
#Hx chronic constipation/diarrhea
#Patient on chronic oral opiates causing chronic constipation
Recent constipation 4 to 5 days ago treated with MiraLAX prune juice senna 1227, 1229
Last bowel movement yesterday 02/19/2024 dark brown after Pepto-Bismol
-bowel regimen on dc per Gi recs colace and senna. If persistent loose stools then hold senna.
#history of cognitive impairment not listed but son states
#DVT right leg/PE 2019-was treated with Eliquis at that time then stopped
#HTN�benign
IV hydralazine 5 mg and started on procardia 30mg daily. Can uptitrate as needed
#Spinal stenosis with chronic lower back pain
#Chronic neuropathy bilateral legs
#Chronic left and right dropfoot
#Chronic wheelchair-bound
-Continue Tylenol 650 mg every 6 hours as needed mild pain/fever
-Continue gabapentin, morphine 15 mg sublingual daily with morphine 15 mg p.o. every hour H as needed severe pain
#HLD
-No meds listed
#GERD
-Will be placed on IV Protonix daily and BID can be stopped
#DM 2�diet controlled
Accu-Cheks with SSI low, check HgbA1c
#Anxiety/depression
-Continue Cymbalta 40 mg every afternoon, fluoxetine 30 mg daily
-cont lorazepam 0.5 mg p.o. every 8 hours and 0.5 mg p.o. every 8 hours as needed
#Chronic UTIs
IV patient on chronic Hiprex 1 g p.o. twice daily
DVT prophylaxis
SCDs given hemoglobin 6.1 and concern for GI bleed
DNR per patient with son Dante at bedside
Anticipated Discharge: > 48 hours
Subjective/Interval History
-
Date of Service: February 22, 2024
No overnight events
Bp has improved
Objective Data
-
Labs:
Laboratory Results
02/22/24
07:05
WBC 10.2
Hgb 9.1 L
Hct 31.7 L
Plt Count 293
Sodium 137
Potassium 4.0
Chloride 103
Carbon Dioxide 23
BUN 14
Creatinine 0.7
Glucose 109 H
Calcium 9.0
Vital Signs:
Vital Signs
Temp Pulse Resp BP Pulse Ox
98.2 F 82 24 150/74 94
02/22/24 10:07 02/22/24 10:00 02/22/24 10:00 02/22/24 10:00 02/22/24 10:00
I&O
02/21/24 02/22/24 02/23/24
06:59 06:59 06:59
Intake Total 500 / 500
Output Total 1100 / 1100 1000 / 1000
Balance -600 / -600 -1000 / -1000
Data Reviewed
-
Total Time Spent with Patient (in minutes): 55
[2024-02-22] MEDS: FERRLECIT 110 MG IV (13:03)
[2024-02-22] MEDS: NULYTELY SOLUTION 4 LITERS PO (14:40)
--- NOTE | 2024-02-22 15:24 | PTCARENOTE ---
Pt refuses to drink anymore bowel prep. Advised MD and made aware. The pt was placed back on a food diet.
--- NOTE | 2024-02-22 15:31 | W.PN.UPDATE ---
Update Note
Progress Note Update
she is now refusing the colonoscopy. Would send her home with PCP follow up, CBC checks, outpatient B12 injections weekly x 4 wks, then monthly and PO daily. Send her on once daily po pantoprazole 40mg. We will call her with biopsy results.
--- NOTE | 2024-02-22 16:09 | CM ---
Alert awake oriented patient who lives alone at [facility] She said is independent in all activities of daily living.She uses a walker and wheelchair .Will need PT OT for discharge planning.
No adaptive devices
Never had VN/SNF
Pharmacy [facility]
PCP Dr Hernandez
PLAN Will need PT OT for dc planning
[2024-02-22] MEDS: CYMBALTA DELAYED RELEASE 40 MG PO (17:00)
[2024-02-22 17:04] LABS: Glucose - Point of Care 110 mg/dl (70-99)
[2024-02-22 21:52] LABS: Glucose - Point of Care 107 mg/dl (70-99)
[2024-02-23] MEDS: ATIVAN 0.5 MG PO ×2 (00:57→08:15)
[2024-02-23 03:20] VITALS: BP 166/82
[2024-02-23 06:03] VITALS: BP 152/78
[2024-02-23] MEDS: TRANDATE 10 MG IV (06:06)
[2024-02-23 07:37] LABS: Glucose - Point of Care 131 mg/dl (70-99)
[2024-02-23 07:45] VITALS: BP 128/71
[2024-02-23] MEDS: ROXANOL ORAL CONCENTRATE 15 MG SL (08:14)
[2024-02-23] MEDS: PROTONIX IV 40 MG IV (08:14)
[2024-02-23] MEDS: NSS (PRESERVATIVE FREE) 10 ML IV (08:14)
[2024-02-23] MEDS: CYANOCOBALAMIN 1000 MCG IM (08:14)
[2024-02-23] MEDS: NEURONTIN 400 MG PO (08:15)
[2024-02-23] MEDS: VITAMIN B-12 1000 MCG PO (08:15)
[2024-02-23] MEDS: PROCARDIA XL (EXTENDED RELEASE) 30 MG PO (08:15)
[2024-02-23] MEDS: PROZAC 30 MG PO (08:15)
[2024-02-23] MEDS: HIPREX 1 GRAM PO (08:15)
[2024-02-23 09:16] LABS: % Basophils 0.4 % (0-2); % Eosinophils 1.6 % (0-6); % Immature Granulocytes 1.6 % (0-0.5); % Lymphocytes 19.9 % (20.5-51.1); % Monocytes 7.8 % (1.7-9.3); % Neutrophils 68.7 % (42.2-75.2); Absolute Eosinophils 0.1 10^3/uL (0-0.7); Absolute Immature Granulocytes 0.1 10^3/uL (0-0.05); Absolute Lymphocytes 1.6 10^3/uL (1.2-3.4); Absolute Monocytes 0.6 10^3/uL (0.1-0.6); Absolute Neutrophils 5.6 10^3/uL (1.4-6.5); Hematocrit 32.6 % (37.0-47.0); Hemoglobin 9.1 g/dL (12.0-16.0); Mean Corp Hgb Conc. 27.9 g/dL (33.0-37.0); Mean Corpuscular Hgb 18.8 pg (27.0-31.0); Mean Corpuscular Volume 67.5 fL (81.0-99.0); Nucleated Red Blood Cells % 0.2 %; Platelet Count 291 10^3/uL (130-400); Red Blood Cell Count 4.83 10^6/uL (4.20-5.40); Red Cell Dist. Width 26.4 % (11.5-14.5); White Blood Cell Count 8.2 10^3/uL (4.8-10.8)
[2024-02-23 10:25] LABS: Blood Urea Nitrogen 15 mg/dl (7-17); Calcium 8.8 mg/dl (8.4-10.2); Carbon Dioxide 22 mmol/L (22-30); Chloride 103 mmol/L (98-107); Estimated Creatinine Clearance 49 ml/min; Glucose 114 mg/dl (70-99); Potassium 3.8 mmol/L (3.5-5.1); Sodium 134 mmol/L (135-145); eGFR > 60.00
[2024-02-23 11:04] VITALS: BP 115/54
--- NOTE | 2024-02-23 11:05 | W.PN.HOSP.TC ---
Today's Communication/Plan
-
dc home
po and IM b12
cbc with pcp
refused c-scope
Assessment / Plan
Assessment / Plan
General: Comfortable, obese
HEENT: NormoCephalic, Anicteric, Moist mucous membranes, PERRLA and [place] Conjunctivae
Respiratory: Clear; No Wheezes, Rales or Rhonchi
Cardiac: S1/S2 and Regular Rhythm; No Murmur, Rub, Gallop or Peripheral Edema
GI: Soft, Non Distended, Normal Bowel Sounds and Tender (Epigastric area)
Rectal: Hem Positive (Light brown per ER record heme positive)
Genito-urinary: Deferred by me
Musculoskeletal: No Clubbing, No Cyanosis, No Edema and Other (Bilateral left and right foot drops chronic)
Skin: Warm and Dry; No Rash, Jaundice or Ulcers
Neuro: Awake, Alert, Oriented Cranial Nerves Intact, No Sensory Deficits and Other (Chronic bilateral foot drop); No Slurred Speech, Facial Droop or Tremors
Psych: Calm
#Symptomatic anemia/microcytic concern possible GI bleed 2/2 PUD vs. AVMs vs. malignancy
#Hx anemia-microcytic
Hgb 6.2, MCV 62.2
s/p 2 units PRBC. Hgb at 9.1
-Consult GI
-Hold OTC Pepto-Bismol
-IV Protonix 40 mg daily
-Clear liquid diet
-s/p EGD lower third of the esophagus was moderately tortuous. Moderate inflammation With erythema and granularity in the gastric body and gastric antrum. Status post biopsy for H. pylori. Stomach otherwise was normal. Duodenum was normal.
-refused Colonoscopy.
-Continue with IV iron and B12 supplementation IM and po on dc. .
#Hx chronic constipation/diarrhea
#Patient on chronic oral opiates causing chronic constipation
Recent constipation 4 to 5 days ago treated with MiraLAX prune juice senna 1227, 1229
Last bowel movement yesterday 02/19/2024 dark brown after Pepto-Bismol
-bowel regimen on dc per Gi recs colace and senna. If persistent loose stools then hold senna.
#history of cognitive impairment not listed but son states
#DVT right leg/PE 2019-was treated with Eliquis at that time then stopped
#HTN�benign
IV hydralazine 5 mg and started on procardia 30mg daily. Can uptitrate as needed
BP improved to 115/54
#Spinal stenosis with chronic lower back pain
#Chronic neuropathy bilateral legs
#Chronic left and right dropfoot
#Chronic wheelchair-bound
-Continue Tylenol 650 mg every 6 hours as needed mild pain/fever
-Continue gabapentin, morphine 15 mg sublingual daily with morphine 15 mg p.o. every hour H as needed severe pain
#HLD
-No meds listed
#GERD
-Will be placed on IV Protonix daily and BID can be stopped
#DM 2�diet controlled
Accu-Cheks with SSI low, POC stable at 131
#Anxiety/depression
-Continue Cymbalta 40 mg every afternoon, fluoxetine 30 mg daily
-cont lorazepam 0.5 mg p.o. every 8 hours and 0.5 mg p.o. every 8 hours as needed
#Chronic UTIs
IV patient on chronic Hiprex 1 g p.o. twice daily
DVT prophylaxis
SCDs given hemoglobin 6.1 and concern for GI bleed
DNR per patient with son Dante at bedside
PT/OT-SNF. Medically stable. [facility]. CM aware
Anticipated Discharge: Today
Subjective/Interval History
-
Date of Service: February 23, 2024
wants to go back home
refused colonoscopy
no bleeding
tolerating diet
Objective Data
-
Labs:
Laboratory Results
02/23/24
08:38
WBC 8.2
Hgb 9.1 L
Hct 32.6 L
Plt Count 291
Sodium 134 L
Potassium 3.8
Chloride 103
Carbon Dioxide 22
BUN 15
Creatinine 0.8
Glucose 114 H
Calcium 8.8
Vital Signs:
Vital Signs
Temp Pulse Resp BP Pulse Ox
98.2 F 83 18 115/54 92
02/23/24 11:04 02/23/24 11:04 02/23/24 11:04 02/23/24 11:04 02/23/24 11:04
I&O
02/22/24 02/23/24 02/24/24
06:59 06:59 06:59
Intake Total 0 / 0
Output Total 1000 / 1000
Balance -1000 / -1000 0 / 0
Data Reviewed
-
Total Time Spent with Patient (in minutes): 55
[2024-02-23 11:41] LABS: Glucose - Point of Care 130 mg/dl (70-99)
--- NOTE | 2024-02-23 11:44 | CM ---
Addendum entered by Rima Baker RN 02/23/24 16:01:
Covid ordered results negative Brandy aware . Ambulance set up .Dgt in room aith pt.
Original Note:
MD entered ordered for discharge.
REviewed PT OT with dgt Lucia and pt . Both agreed to [facility].
Referral placed Spoke with Brandy at [facility] . Awaiting approval for snf.
IMM reviewed with pt and dgt . Agree with IMM and dc.
Requested ambulance Medical nec completed.
[facility]
report [phone]
fax [phone]
PLAN To [facility]
[2024-02-23] MEDS: FERRLECIT 110 MG IV (13:27)
[2024-02-23 15:20] VITALS: BP 129/64
[2024-02-23 15:41] LABS: COVID-19 Antigen Negative (Negative)
--- NOTE | 2024-02-23 16:00 | W.DCSUMMARY ---
Discharge Summary
Discharge Data
Date of Admission: 02/20/24
Date of Discharge: 02/23/24
-
Pending Results: No
Hospital Course
88-year-old female past medical history of hypertension, spinal stenosis with chronic lower back pain, chronic neuropathy of bilateral extremities, chronic left and right foot drop, hyperlipidemia, GERD, diabetes mellitus diet control, anxiety,
depression, chronic constipation associated with overflow diarrhea, anemia who is presenting with symptomatic anemia. Patient had hemoglobin of 6.2 received units of PRBC. Hemoglobin appropriately up trended. Underwent endoscopy which showed s/p
EGD lower third of the esophagus was moderately tortuous. Moderate inflammation With erythema and granularity in the gastric body and gastric antrum. Status post biopsy for H. pylori. Stomach otherwise was normal. Duodenum was normal.
Colonoscopy was recommended by gastroenterology. Patient refused colonoscopy. Patient hemoglobin was stable and no jag luminal bleeding was noted. Patient vitamin B12 level was low and recommended weekly injection x 4 weeks then monthly in
addition to continue with p.o. supplementation. Also received IV iron. Patient also with elevated uncontrolled hypertension and started Procardia. Recommend outpatient follow-up with PCP for further meds adjustment. Patient was recommended to
repeat CBC as outpatient and then follow-up with gastroenterology if she changes her mind regarding for colonoscopy.
Discharge Plan
-
Patient Disposition: [facility]/SNF
Discharge Diagnosis/Procedures: Symptomatic anemia status post blood transfusion status post endoscopy
Primary hypertension uncontrolled
Vitamin b12 deficiency
Condition: Fair
Diet: Diabetic, Carb Controlled
Activity: With assistance and As tolerated
Driving Restrictions: Not until seen by your Dr
Blood Work: cbc in 7 days via primary doctor.
Activity Restrictions/Additional Instructions:
outpatient B12 injections weekly x 4 wks, then monthly and PO daily
Referrals:
Deon Hernandez MD [Family Provider] - in less than 1 week
Rogerio Macedo, DO [Active] - (f/u the biopsy results-office will call you. )
Prescriptions:
New
cyanocobalamin (vitamin B-12) 1,000 mcg/mL Solution
1,000 mcg IM Q7D 28 Days Qty: 4 0RF
Rx Instructions:
B12 injections weekly x 4 wks, then monthly
cyanocobalamin (vitamin B-12) 1,000 mcg Tablet
1,000 mcg PO DAILY 30 Days Qty: 30 0RF
nifedipine 30 mg Tablet Extended Release
30 mg PO DAILY 30 Days Qty: 30 0RF
pantoprazole [Protonix] 40 mg tablet,delayed release (DR/EC)
40 mg PO DAILY Qty: 30 0RF
docusate sodium [Col-Rite] 100 mg capsule
100 mg PO BID Qty: 60 0RF
Continued
sennosides [senna] 8.6 mg Tablet
8.6 mg PO HS
acetaminophen 650 mg Suppository
650 mg ND Q6HPRN PRN (Reason: mild pain/fever)
polyethylene glycol 3350 [Miralax] 17 gram Powder In Packet
17 g PO DAILYPRN PRN (Reason: constipation)
prochlorperazine maleate 10 mg Tablet
10 mg PO Q6HPRN PRN (Reason: nasuea)
lorazepam 0.5 mg Tablet
0.5 mg PO Q8HPRN PRN (Reason: anxiety)
phenazopyridine [Pyridium] 100 mg Tablet
100 mg PO Q8HPRN PRN (Reason: burning with urination)
bisacodyl [Dulcolax (bisacodyl)] 10 mg Suppository
10 mg ND [id number] PRN (Reason: if no bm by 3rd day)
fluoxetine 20 mg Tablet
30 mg PO DAILY
hyoscyamine sulfate [Levsin/SL] 0.125 mg Tablet, Sublingual
0.125 mg PO Q4HPRN PRN (Reason: secretions)
duloxetine [Cymbalta] 20 mg Capsule,Delayed Release(Dr/Ec)
40 mg PO QPM
morphine concentrate 20 mg/mL Syringe
15 mg PO Q1HPRN PRN (Reason: severe pain)
acetaminophen 325 mg Tablet
650 mg PO Q6HPRN PRN (Reason: mild pain/fever)
gabapentin 400 mg Capsule
400 mg PO TID
lidocaine 4 % Cream
1 applic TOPICAL TIDPRN PRN (Reason: feet and legs)
methenamine hippurate 1 gram Tablet
1 g PO BID
Deep Sea Nasal 0.65 % Aerosol,Lloyd
1 spray INTRANASAL [id number] PRN (Reason: nasal congestion)
vit [id number] Lotion
1 applic TOPICAL BID
Cough Drops 5.4 mg Lozenge
5.4 mg MUCOUS MEMBRANE Q2HPRN PRN (Reason: cough)
lorazepam 0.5 mg Tablet
0.5 mg PO Q8H Qty: 9 0RF
fentanyl 75 mcg/hr Patch 72 Hour
1 patch TRANSDERMAL Q72H 3 Days Qty: 1 0RF
morphine concentrate 20 mg/mL Syringe
15 mg SUBLINGUAL DAILY 3 Days Qty: 2.25 0RF
Discontinued
bismuth subsalicylate [Pepto-Bismol] 262 mg/15 mL Suspension
524 mg PO Q6HPRN PRN (Reason: gi upset)
Discharge Orders:
Discharge Patient (As Directed); Ordered 02/23/24
Ordered By: Segundo Hodges
Discharge Date and Time
Discharge Date/Time: 02/23/24 16:55
Print Language: FINNISH
== END 2024-02-23 16:55 | DRG 812 ==
LOC: 4 EAST ACU 17:10
PROVIDERS: Clinical Nurse Specialist Family Health; Emergency Medicine; Nurse Practitioner Family; Physician Assistant; ADMITTING PHYSICIAN Hospitalist; ATTENDING PHYSICIAN Hospitalist; EMERGENCY PHYSICIAN Emergency Medicine; FAMILY PHYSICIAN Internal Medicine; OTHER PHYSICIAN Internal Medicine
PROC: 30233N1 Transfusion of Nonautologous Red Blood Cells into Peripheral Vein, Percutaneous Approach (ICD-10-PCS; 2024-02-20)
PROC: 0DB88ZX Excision of Small Intestine, Via Natural or Artificial Opening Endoscopic, Diagnostic (ICD-10-PCS; 2024-02-22)
PROC: 0DB68ZX Excision of Stomach, Via Natural or Artificial Opening Endoscopic, Diagnostic (ICD-10-PCS; 2024-02-22)
DX: D50.9 Iron deficiency anemia, unspecified (principal); N39.0 Urinary tract infection, site not specified; E53.8 Deficiency of other specified B group vitamins; M21.371 Foot drop, right foot; K29.70 Gastritis, unspecified, without bleeding; K44.9 Diaphragmatic hernia without obstruction or gangrene; M48.00 Spinal stenosis, site unspecified; E78.00 Pure hypercholesterolemia, unspecified; K21.9 Gastro-esophageal reflux disease without esophagitis; G57.93 Unspecified mononeuropathy of bilateral lower limbs; E11.41 Type 2 diabetes mellitus with diabetic mononeuropathy; F41.9 Anxiety disorder, unspecified; F32.A Depression, unspecified; Z66 Do not resuscitate; I10 Essential (primary) hypertension; T40.2X1A Poisoning by other opioids, accidental (unintentional), initial encounter
CPT/HCPCS: 88305; 71046; 80048; 80053; 82607; 82728; 82746; 82962; 83540; 83550; 83880; 85014; 85018; 85025; 86850; 86900; 86901; 86920; 87070; 87502; 87811; 88342; 93005; 96374; 97163; 97167; 97530; 99285; J2916; P9016